=== PATIENT | female | born 1980 | race Caucasian/White ===

== ENCOUNTER → 2016-06-25 | Outpatient (CLI) | payer BC ==
[~2016-06-25] MED LIST: BETAMETHASONE SOD PHOS/ACETATE SUSP 30 MG/5 ML VIAL IM SCH; CALC600T34 PO; PREN1TAB30
== END ==
LOC: HOBED 17:02
PROVIDERS: ATTEND Obstetrics & Gynecology
DX: O60.03 Preterm labor without delivery, third trimester (principal); Z3A.00 Weeks of gestation of pregnancy not specified
CPT/HCPCS: 96372; J0702

== ENCOUNTER → 2016-06-26 | Outpatient (CLI) | payer BC ==
[~2016-06-26] MED LIST changes: +BETAMETHASONE SOD PHOS/ACETATE SUSP 30 MG/5 ML VIAL IM ONE; -BETAMETHASONE SOD PHOS/ACETATE SUSP 30 MG/5 ML VIAL IM SCH
== END ==
LOC: HOBG 16:59
PROVIDERS: ATTEND Obstetrics & Gynecology
DX: O60.03 Preterm labor without delivery, third trimester (principal); Z3A.00 Weeks of gestation of pregnancy not specified
CPT/HCPCS: 96372; J0702

== ENCOUNTER 2016-10-03 08:09 | Inpatient (IN) | payer BC ==
[2016-10-03] VITALS (48 sets, daily range): BP systolic 68–161; BP diastolic 36–136; PULSE 63–128; RESP 16–20; TEMP 98.2–98.6
[~2016-10-03] VITALS: Ht 157.5 cm; Wt 82.0 kg
[~2016-10-03 08:09] MED LIST changes: -BETAMETHASONE SOD PHOS/ACETATE SUSP 30 MG/5 ML VIAL IM ONE
[2016-10-03 08:45] LABS: BASOPHIL % 0.6 % (0.0-2.0); EOSINOPHIL # 0.1 TH/MM3 (0-0.4); HEMATOCRIT 39.9 % (35.0-46.0); HEMO FLAGS DIFF FINAL; LYMPH % 23.8 % (9.0-44.0); LYMPHOCYTE # 1.8 TH/MM3 (1.0-4.8); MEAN CELL VOLUME 94.7 FL (80.0-100.0); MEAN CORPUSCULAR HEMOGLOBIN 31.4 PG (27.0-34.0); MEAN CORPUSCULAR HGB CONC 33.1 % (32.0-36.0); MONO % 9.7 % (0.0-8.0); NEUT % 64.9 % (16.0-70.0); PLATELET COUNT 119 TH/MM3 (150-450); RED BLOOD COUNT 4.21 MIL/MM3 (4.00-5.30); RED CELL DISTRIBUTION WIDTH 13.6 % (11.6-17.2); WHITE BLOOD COUNT 7.7 TH/MM3 (4.0-11.0)
[2016-10-03 08:47] LABS: BACTERIA, URINE RARE /hpf; BLOOD, URINE NEG (NEG); COMMENT (UR) CULT NOT INDICATED; CULTURE IF INDICATED CULT NOT INDICATED; GLUCOSE,URINE NEG (NEG); KETONE, URINE NEG (NEG); MUCUS URINE FEW /lpf (OCC); NITRITE,URINE NEG (NEG); SQUAMOUS EPITHELIAL CELL URINE 1 /hpf (0-5); URINE COLOR YELLOW (YELLW/STRAW)
[2016-10-03] MEDS ORDERED: OXYTOCIN 30 UNITS-500ML PREMIX 500 ML IV ONE (09:00)
[2016-10-03] MEDS ORDERED: CITRIC ACID-SODIUM CITRATE LIQ 30 ML UDC PO SCH ×2 (09:00→10:00)
[2016-10-03] MEDS ORDERED: LIDOCAINE HCL 1% 50 ML VIAL I-DERMAL PRN ×2 (09:00→10:00)
[2016-10-03] MEDS ORDERED: ONDANSETRON HCL 4 MG/2 ML VIAL IV PRN ×2 (09:00→10:00)
[2016-10-03] MEDS ORDERED: SODIUM CHLORID 0.9% 500 ML INJ 500 ML IV PRN (09:00)
[2016-10-03] MEDS ORDERED: LIDOCAINE HCL 1% 50 ML VIAL INFIL PRN ×2 (09:00→10:00)
[2016-10-03] MEDS ORDERED: LACTATED RINGER'S 1000 ML INJ 1,000 ML IV PRN (09:00)
[2016-10-03] MEDS ORDERED: MINERAL OIL 10 ML VIAL TOPICAL PRN ×2 (09:00→10:00)
[2016-10-03] MEDS ORDERED: LACTATED RINGER'S 1000 ML INJ 1,000 ML IV SCH (09:00)
--- NOTE | 2016-10-03 09:10 | HHI.HP ---
HPI Chief Complaint labor augmentation at postdates, advanced dilation in office Date Seen: Oct 03, 2016 Time Seen: 09:00 Travel History International Travel<30 Days: No Contact w/Intl Traveler<30Days: No Known Affected Area: No History of Present Illness HPI 36 yo with EDC 09/29/16 by LMP c/w 14w sonogram, presents for scheduled postdates labor induction at 40w4d. Was seen in office yesterday with c/o mild pelvic pressure but no regular contractions, finding on SVE of /-1. Pt's was complicated by history of last delivered at 31wks after advanced cervical dilation and pretern labor. This pt had been taking 17-OH progesterone (Katharine) injections weekly from 16 -36 weeks with good result. Due to shortened cervix and history pt did receive betamethasone on 06/25 & 06/26/16. Today pt c/o continued mild pelvic pressure, denies LOF or VB. Good FM. This is male . Para: 1 : 6 Last Menstrual Period: Dec 24, 2015 Miscarriage: 1 : 3 History Past Medical History Narrative Medical h/o childhood asthma Obstetric History Obstetric History EAB 2001, 2003, 2004 SAB 12/2013 @ 31 wks 12/2014, male, 3#10oz "Pedro" delivered at [facility] G6 = current, male Past Surgical History Narrative Surgical root canal 2012 Family History Family History: Negative Social History Alcohol Use: No Tobacco Use: No Substance Abuse: No Allergies-Medications (Allergen,Severity, Reaction): Uncoded Allergies: doxycyclene (Allergy, Unknown, Swelling, 12/25/14) hands swell Home Meds Reported Medications Vit W/ Ferrous Fumara ( Vitamin 27-0.8 mg)1 Tab Tab 12/25/14 Discontinued Reported Medications Calcium 600 Mg [id number] Mg PO DAILY #60 TAB 12/25/14 Review of Systems General / Constitutional: Weight Gain, No: Fever, Chills, Other Eyes: No: Diploplia, Blurred Vision, Visual changes, Pain, Photophobia HENT: No: Headaches, Vertigo, Lightheadedness Cardiovascular: No: Irregular Rhythm, Chest Pain or Discomfort, Palpitations, Tachycardia, Syncope, Varicosities, Edema, Cyanosis Respiratory: No: Cough, Short of Breath, Other Gastrointestinal: No: Nausea, Vomiting, Diarrhea Genitourinary: Pelvic Pain (pressure), No: Decreased Urinary Output, Oliguria Musculoskeletal: No: Limited ROM, Weakness, Cramping, Edema, Pain Skin: No Rash, No Itching, No Dryness, No Lumps, No Change in Pigmentation, No Change in Nails, No Alopecia, No Lesions Neurologic: No: Weakness, Dizziness, Syncope, Focal Abnormalities, Coordination Problem, Headache, Slurred Speech, Seizures Psychiatric: No: Depression, Suicidal Ideations, Homicidal Ideation Endocrine: No: Heat Intolerance, Cold Intolerance, Polydipsia, Polyuria, Other Physical Exam Vital Signs Date Time Temp Pulse Resp B/P Pulse Ox O2 Delivery O2 Flow Rate FiO2 10/03/16 08:45 98.2 20 10/03/16 08:35 80 100/64 Narrative GENERAL: Well-nourished, well-developed patient. SKIN: Warm and dry. HEAD: Normocephalic and atraumatic. EYES: No scleral icterus. No injection or drainage. ENT: No nasal drainage noted. Mucous membranes pink. Airway patent. NECK: Supple, trachea midline. No JVD. CARDIOVASCULAR: Regular rate and rhythm without murmurs, gallops, or rubs. RESPIRATORY: Breath sounds equal bilaterally. No accessory muscle use. BREASTS: deferred. ABDOMEN/GI: Abdomen soft, non-tender, bowel sounds present, no rebound, no guarding Gravid to [40] weeks size Fundal Height: [41] GENITOURINARY: External Genitalia: intact and normal in appearance Cervix: [mid] Dilatation: [5-6] Effacement: [70] Station: [-1] Presentation: [vtx] Membranes: [intact] Uterine Contractions: [irreg] FHT's: 8/8 BPP in office EXTREMITIES: No cyanosis or edema. BACK: Nontender without obvious deformity. No CVA tenderness. NEUROLOGICAL: Awake and alert. Motor and sensory grossly within normal limits. Five out of 5 muscle strength in all muscle groups. Normal speech. Data Data Vital Signs Reviewed: Yes Orders Code Status (10/03/16 08:30) Vital Signs (Adult) .Per protocol (10/03/16 08:30) Heart (10/03/16 08:30) Amnioinfusion (10/03/16 08:30) Urinary Catheter Management .ONCE (10/03/16 08:30) Complete Blood Count With Diff (10/03/16 08:30) Hold Clot (10/03/16 08:30) Abo/Rh Blood Type (10/03/16 08:30) Urinalysis - C+S If Indicated (10/03/16 08:30) Resp Oxygen Non Rebreathe Mask (10/03/16 ) ^ Epidural / Intrathecal Infus (10/03/16 08:30) Specimen To Be Collected PRN (10/03/16 08:30) ^ Non Stress Test (10/03/16 08:56) Response To Medication .Post New Med Administration, Reaction (10/03/16 08:56) ^ Discontinue Medication (10/03/16 08:56) Admit To Inpatient (10/03/16 ) Code Status (10/03/16 09:00) Vital Signs (Adult) .Per protocol (10/03/16 09:00) Activity Oob Ad Kathy (10/03/16 09:00) Heart (10/03/16 09:00) Amnioinfusion (10/03/16 09:00) Urinary Catheter Management .ONCE (10/03/16 09:00) Diet Liquid (10/03/16 Breakfast) Lactated Ringer's 1000 Ml Inj (Lr 1000 M (10/03/16 09:00) Lactated Ringer's 1000 Ml Inj (Lr 1000 M (10/03/16 09:00) Sodium Chlorid 0.9% 500 Ml Inj (Ns 500 M (10/03/16 09:00) Sodium Chlor 0.9% 1000 Ml Inj (Ns 1000 M (10/03/16 09:20) Lidocaine 1% Inj (50 Ml) (Xylocaine 1% I (10/03/16 09:00) Citric Acid-Sodium Citrate Liq (Bicitra (10/03/16 09:00) Ondansetron Inj (Zofran Inj) (10/03/16 09:00) Fentanyl Inj (Fentanyl Inj) (10/03/16 09:00) Fentanyl Inj (Fentanyl Inj) (10/03/16 09:00) Resp Oxygen Non Rebreathe Mask (10/03/16 ) ^ Epidural / Intrathecal Infus (10/03/16 09:00) Oxytocin 30 Units-500ml Premix (Pitocin (10/03/16 09:00) Lidocaine 1% Inj (50 Ml) (Xylocaine 1% I (10/03/16 09:00) Light Mineral Oil (Muri-Lube Oil) (10/03/16 09:00) Inpatient Certification (10/03/16 ) ^ Non Stress Test (10/03/16 09:02) Response To Medication .Post New Med Administration, Reaction (10/03/16 09:02) ^ Discontinue Medication (10/03/16 09:02) Oxytocin Drip (130) (10/03/16 09:15) Labs Laboratory Tests Test 10/03/16 08:22 White Blood Count 7.7 Red Blood Count 4.21 Hemoglobin 13.2 Hematocrit 39.9 Mean Corpuscular Volume 94.7 Mean Corpuscular Hemoglobin 31.4 Mean Corpuscular Hemoglobin 33.1 Concent Red Cell Distribution Width 13.6 Platelet Count 119 Mean Platelet Volume 9.6 Neutrophils (%) (Auto) 64.9 Lymphocytes (%) (Auto) 23.8 Monocytes (%) (Auto) 9.7 Eosinophils (%) (Auto) 1.0 Basophils (%) (Auto) 0.6 Neutrophils # (Auto) 5.0 Lymphocytes # (Auto) 1.8 Monocytes # (Auto) 0.7 Eosinophils # (Auto) 0.1 Basophils # (Auto) 0.0 CBC Comment DIFF FINAL Differential Comment Urine Color YELLOW Urine Turbidity CLEAR Urine pH 7.0 Urine Specific [place] 1.009 Urine Protein NEG Urine Glucose (UA) NEG Urine Ketones NEG Urine Occult Blood NEG Urine Nitrite NEG Urine Bilirubin NEG Urine Urobilinogen LESS THAN 2.0 Urine Leukocyte Esterase MOD Urine RBC LESS THAN 1 Urine WBC 2 Urine Squamous Epithelial 1 Cells Urine Bacteria RARE Urine Mucus FEW Microscopic Urinalysis Comment CULT NOT INDICATED Blood Type A POSITIVE Blood Bank Comment Band and Hold HOLD CLOT IN BB Assessment/Plan Problem List: (1) Post-term with 40-42 completed weeks of gestation (2) Labor and delivery indication for care or intervention Assessment and Plan 36 yo at 40w4d presents for scheduled postdates IOL 1) IOL: pt is already at advanced dilation of 5-6/70/-1; AROM/pitocin augment as needed, anticipate 2) GBS neg 3) h/o PTD at 31wks with G5; pt was on Katharine injections from 16-36wks with good result; did receive ppx dose of BMS 06/25 - 06/26/16 due to short cervix 4) status: male, vertex, EFW <8# Discharge Planning routine, 2d PP Attending Attestation pt seen by Maritza Gifford MD Oct 03, 2016 09:10
[2016-10-03] MEDS ORDERED: OXYTOCIN 30 UNITS-500ML PREMIX 500 ML IV SCH (09:15)
[2016-10-03] MEDS ORDERED: SODIUM CHLOR 0.9% 1000 ML INJ 1,000 ML IV PRN (09:20)
[2016-10-03] MEDS ORDERED: NS 500 ML BOLUS IV PRN (09:30)
[2016-10-03] MEDS ORDERED: LACTATED RINGER'S 1000 ML BOLUS IV PRN (09:30)
[2016-10-03] MEDS ORDERED: NS 1000 ML IV PRN (09:30)
[2016-10-03] MEDS ORDERED: LACTATED RINGER'S 1000 ML IV SCH (10:00)
[2016-10-03] MEDS ORDERED: OXYTOCIN 30 UNITS 500ML PREMIX IV ONE (10:00)
[2016-10-03] MEDS ORDERED: fentaNYL 2MCG-BUPIV 0.125% INJ 100 ML ONE (10:11)
[2016-10-03] MEDS ORDERED: ePHEDrine/NS 25 MG/5 ML SYR ONE (10:12)
[2016-10-03] MEDS ORDERED: fentaNYL 2MCG-BUPIV 0.125% 100 ML EPIDURAL SCH (11:30)
[2016-10-03] MEDS ORDERED: NO SYSTEM NARCOTICS PRN (11:30)
[2016-10-03] MEDS ORDERED: DO NOT ADMINISTER ANTICOAGULANTS PRN (11:30)
[2016-10-03] MEDS ORDERED: ePHEDrine/NS 25 MG/5 ML SYR IV PRN (11:30)
--- NOTE | 2016-10-03 13:52 | PD.OB.DELI ---
Anesthesia: Epidural Episiotomy: None Vaginal Delivery: Normal Presentation: Occiput posterior Nuchal Cord: None Delayed cord clamping (45 sec): Yes Infant: Male One Minute : 8 Five Minute : 9 Placenta: Spontaneous delivery, Intact, 3 vessel cord Laceration: Vaginal laceration, 1 deg Repair: Vicryl Kelvin Jones MD Oct 03, 2016 13:52
[2016-10-03] MEDS ORDERED: BENZOCAINE 20% TOPICAL SPRAY 60 ML CAN TOPICAL PRN (14:00)
[2016-10-03] MEDS ORDERED: ACETAMINOPHEN 325 MG TAB PO PRN (14:00)
[2016-10-03] MEDS ORDERED: SODIUM CHLORIDE 0.9% FLUSH 10 ML FLUSH IV FLUSH SCH (14:00)
[2016-10-03] MEDS ORDERED: ALUMINUM/MAGNESIUM/SIMETH 30 ML CUP PO PRN (14:00)
[2016-10-03] MEDS ORDERED: SODIUM CHLORIDE 0.9% FLUSH 10 ML FLUSH IV FLUSH PRN (14:00)
[2016-10-03] MEDS ORDERED: ZOLPIDEM TARTRATE 5 MG TAB PO PRN (14:00)
[2016-10-03] MEDS ORDERED: ONDANSETRON ODT 4 MG TAB PO PRN (14:00)
[2016-10-03] MEDS ORDERED: OXYTOCIN 10 UNIT/ML AMP XX PRN (14:00)
[2016-10-03] MEDS ORDERED: WITCH HAZEL 50%/GLYCERIN 12.5% 40 PAD JAR TOPICAL PRN (14:00)
[2016-10-03] MEDS ORDERED: DOCUSATE SODIUM 50 MG/SENNA 8.6 MG TAB PO PRN (14:00)
[2016-10-03] MEDS ORDERED: MEASLES, MUMPS, RUBELLA VACCINE 0.5 ML VIAL SQ ONE (16:00)
[2016-10-03] MEDS ORDERED: DIPHTH/TETANUS/ACEL PERTUSSIS (BOOSTER) 0.5 ML VIAL/PFS IM ONE (16:00)
[2016-10-03] MEDS: IBUPROFEN 600 MG TAB PO PRN (22:23)
[2016-10-04] MEDS: IBUPROFEN 600 MG TAB PO PRN (04:21)
[2016-10-04 08:00] VITALS: BP 92/60; PULSE 69; RESP 18; TEMP 98.4
--- NOTE | 2016-10-04 08:28 | HHI.OB ---
Subjective Post Day: 1 Remarks Doing well after uneventful delivery desires circ on PPD 2 Objective Vitals/I&O Vital Signs Date Time Temp Pulse Resp B/P Pulse Ox O2 Delivery O2 Flow Rate FiO2 10/03/16 20:14 98.2 81 16 10/03/16 20:14 95/64 10/03/16 15:40 20 10/03/16 15:30 77 93/65 10/03/16 15:01 79 93/55 10/03/16 14:55 20 10/03/16 14:45 78 102/61 10/03/16 14:31 90 97/63 10/03/16 14:29 20 10/03/16 14:25 20 10/03/16 14:16 128 137/60 10/03/16 14:04 20 10/03/16 14:01 91 115/73 10/03/16 13:46 80 161/136 10/03/16 13:30 119 132/72 10/03/16 13:15 126 115/69 10/03/16 13:00 123 136/80 10/03/16 12:45 70 122/71 10/03/16 12:30 80 95/58 10/03/16 12:25 18 10/03/16 12:15 91 80/49 10/03/16 12:00 90 81/53 10/03/16 11:57 20 10/03/16 11:45 84 86/56 10/03/16 11:34 20 10/03/16 11:30 87 107/67 10/03/16 11:15 90 104/71 10/03/16 11:15 98.6 10/03/16 11:15 20 10/03/16 11:11 79 124/84 10/03/16 11:06 70 114/86 10/03/16 11:05 83 10/03/16 11:01 69 113/73 10/03/16 11:00 63 10/03/16 10:56 129/80 10/03/16 10:56 65 10/03/16 10:55 88 10/03/16 10:55 117/69 10/03/16 10:55 71 10/03/16 10:51 108 79/51 10/03/16 10:50 108 10/03/16 10:49 114 71/36 10/03/16 10:48 119 68/40 10/03/16 10:45 113 10/03/16 10:45 91/57 10/03/16 10:41 87 99/70 10/03/16 10:40 85 10/03/16 10:35 111/77 10/03/16 10:35 91 10/03/16 10:31 77 115/76 10/03/16 10:30 94 10/03/16 10:00 69 106/65 10/03/16 09:45 82 100/63 10/03/16 09:30 67 105/66 10/03/16 08:45 98.2 20 10/03/16 08:35 80 100/64 Objective Remarks GENERAL: Well-nourished, well-developed patient. CARDIOVASCULAR: Regular rate and rhythm without murmurs, gallops, or rubs. RESPIRATORY: Breath sounds equal bilaterally. No accessory muscle use. ABDOMEN/GI: Abdomen soft, non-tender. Fundus: Firm, non-tender at umbilicus. GENITOURINARY: Light to moderate bleeding. EXTREMITIES: No cyanosis or edema, non-tender, without signs of DVT. Medications and IVs Current Medications Medications (Trade) Dose Ordered Sig/Geena Route Start Time Stop Time Status Last Admin Oxytocin 500 ml @ 0 mls/hr TITRATE IV 10/03/16 09:15 Lactated Ringer's 1,000 ml @ 125 mls/hr Q8H IV 10/03/16 10:00 10/03/16 09:52 Lactated Ringer's 1,000 ml @ 3,000 mls/hr BOLUS PRN IV 10/03/16 09:30 Sodium Chloride 500 ml @ 1,000 mls/hr BOLUS PRN IV 10/03/16 09:30 (NS 1000 ml Inj) 1,000 ml @ 100 mls/hr Q10H PRN IV 10/03/16 09:30 (Zofran Inj) 4 mg Q6H PRN IV 10/03/16 10:00 (fentaNYL INJ) 50 mcg Q1H PRN IV PUSH 10/03/16 10:00 (fentaNYL INJ) 100 mcg Q1H PRN IV PUSH 10/03/16 10:00 Miscellaneous Information No systemic narcotics to be given except... UNSCH PRN .XX 10/03/16 11:30 10/04/16 11:29 Miscellaneous Information DO NOT ADMINISTER ANY ANTICOAGUL... UNSCH PRN .XX 10/03/16 11:30 10/04/16 11:29 (fentaNYL 2MCG-BUPIV 0.125% INJ) 100 ml @ 0 mls/hr TITRATE EPIDURAL 10/03/16 11:30 (ePHEDrine/NS 25 MG/5 ML SYR) 10 mg UNSCH PRN IV 10/03/16 11:30 10/04/16 11:29 (NS Flush) 2 ml BID IV FLUSH 10/03/16 14:00 (NS Flush) 2 ml UNSCH PRN IV FLUSH 10/03/16 14:00 (Tylenol) 650 mg Q4H PRN PO 10/03/16 14:00 (Motrin) 600 mg Q6H PRN PO 10/03/16 14:00 10/04/16 04:21 (Americaine 20% Top Spr) 1 spray Q4H PRN TOPICAL 10/03/16 14:00 10/04/16 05:51 (Tucks Pads) 1 applic QID PRN TOPICAL 10/03/16 14:00 10/04/16 05:51 (Neena-Colace) 2 tab Q12H PRN PO 10/03/16 14:00 10/03/16 22:21 (Ambien) 5 mg HS PRN PO 10/03/16 14:00 (Mag-Al Plus Susp Liq) 15 ml Q8H PRN PO 10/03/16 14:00 (Zofran Odt) 4 mg Q6H PRN PO 10/03/16 14:00 Assessment/Plan Problem List: (1) Post-term with 40-42 completed weeks of gestation (2) Labor and delivery indication for care or intervention Assessment and Plan PPD 1 doing well anticipate discharge in am circ in am Discharge Planning routine, 2d PP Tika Kaye MD Oct 04, 2016 08:28
--- NOTE | 2016-10-04 11:17 | PD.CIRC ---
Circumcision Procedure Note Procedure: Circumcision Pre-procedure diagnosis: circumcision Post-procedure diagnosis: circumcision Informed Consent: The risks, benefits, indications, potential complications, and alternatives were explained to the patient/family and informed consent obtained. The baby was brought to the procedure room where a time-out was done to ID the patient and the procedure. Performing Physician: Kelvin Francis Anesthesia used: 1% lidocaine injected Type of block: dorsal penile block Device used: Mogen Description: The baby was prepped and draped in a sterile fashion. The procedure followed standard technique. The baby tolerated the procedure well without complication. Findings: normal ext. genitalia Estimated blood loss: none Specimen: No Kelvin Francis MD Oct 04, 2016 11:17
--- NOTE | 2016-10-04 11:18 | HHI.DS ---
Admission Date Oct 03, 2016 at 08:09 Admitting Diagnosis Diagnosis: Vaginal Delivery: Normal : Male Brief History 36 yo with EDC 09/29/16 by LMP c/w 14w sonogram, presents for scheduled postdates labor induction at 40w4d. Was seen in office yesterday with c/o mild pelvic pressure but no regular contractions, finding on SVE of /-1. Pt's was complicated by history of last delivered at 31wks after advanced cervical dilation and pretern labor. This pt had been taking 17-OH progesterone ([place]) injections weekly from 16 -36 weeks with good result. Due to shortened cervix and history pt did receive betamethasone on 06/25 & 06/26/16. Today pt c/o continued mild pelvic pressure, denies LOF or VB. Good FM. This is male . Pt Condition on Discharge: Good Discharge Disposition: Discharge Home Discharge Instructions Diet Instructions: As Tolerated, No Restrictions Activities You Can Perform: Shower Only-No Bath Activities to Avoid: Driving for 24 hrs, Prolonged Standing, Strenuous Activity , Sexual Activity Kelvin Francis MD Oct 04, 2016 11:18
[2016-10-04] MEDS ORDERED: IBUP-232 PO (11:28)
== END 2016-10-04 16:56 | disposition home or self-care (01) | DRG 775 ==
LOC: H2EB 08:09 → H1EA 16:31
PROVIDERS: ADMIT Obstetrics & Gynecology; ATTEND Obstetrics & Gynecology
PROC: 10E0XZZ Delivery of Products of Conception, External Approach (ICD-10-PCS; principal; 2016-10-03)
PROC: 0HQ9XZZ Repair Perineum Skin, External Approach (ICD-10-PCS; 2016-10-03)
DX: O48.0 Post-term pregnancy (principal); O70.0 First degree perineal laceration during delivery; Z37.0 Single live birth; Z3A.40 40 weeks gestation of pregnancy
CPT/HCPCS: 59025; 81001; 85025; 86900; 86901; 90715; J2590; J7120